=== PATIENT | male | born 1995 ===

== ENCOUNTER 2020-02-12 21:45 | Emergency (ER) | payer OTHER ==
[2020-02-12] MEDS ORDERED: LIDOCAINE 1% W/EPI 1:100,000 MDV 20 ML VIAL ONE (22:16)
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
[2020-02-12 23:53] VITALS: TEMP 98.6
[2020-02-12 23:56] VITALS: BP 121/75; O2SAT 99
--- NOTE | 2020-02-13 09:59 | RAD REPORT ---
EXAM DESCRIPTION: CT - Facial Bones W/ Mpr - 02/13/2020 2:41 am CLINICAL HISTORY: SWELLING COMPARISON: None. TECHNIQUE: CT MAXILLOFACIAL WITHOUT IV CONTRAST on 02/12/2020 10:04 PM CDT This exam was performed according to our departmental dose-optimization program, which includes autom ated exposure control, adjustment of the mA and/or kV according to patient size and/or use of iterati ve reconstruction technique. FINDINGS: There is minimal deformity of the medial right orbital wall. The paranasal sinuses are darrius ar. There is right periorbital and right frontal scalp soft tissue swelling. Mastoid air cells are cl ear. Temporomandibular joints are intact. There are no significant soft tissue abnormalities. IMPRESSION: Right periorbital soft tissue swelling with mild fracture deformity of the medial right orbital wall. Electronically signed by: Jesus Varela MD 02/12/2020 10:52 PM CDT Due to temporary technical issues with the PACS/Fluency reporting system, reports are being signed by the in house radiologist without review as a courtesy to ensure prompt reporting. The interpreting r adiologist is fully responsible for the content of the report.
== END 2020-02-12 23:48 ==
LOC: ER 21:45
PROC: 0JQ10ZZ Repair Face Subcutaneous Tissue and Fascia, Open Approach (ICD-10-PCS; principal; 2020-02-12)
DX: S02.30XA Fracture of orbital floor, unspecified side, initial encounter for closed fracture (principal); Y04.2XXA Assault by strike against or bumped into by another person, initial encounter; Y93.9 Activity, unspecified; Y92.149 Unspecified place in prison as the place of occurrence of the external cause; F17.210 Nicotine dependence, cigarettes, uncomplicated
CPT/HCPCS: 70486; 76377; 99284